=== PATIENT | female | born 1940 | race Two or more races ===

== ENCOUNTER 2018-05-06 16:52 | Emergency (ER) | payer OTHER ==
--- NOTE | 2018-05-06 16:58 | EDPHY ---
General Time Seen by Provider: 05/06/18 16:55 Narrative: CLINICAL IMPRESSION: Right anterior Epistaxis ASSESSMENT/PLAN: Patient is a 77-year-old female with a history of hypertension, atrial fibrillation and recent pacemaker implantation was currently on Eliquis, presents with bleeding from the right nares. Patient is afebrile and nontoxic- appearing, she is in no acute distress on arrival. Physical examination revealed oozing along the anterior septum in the right nares. There was no obvious hematoma, perforation, foreign body, mass or evidence of a posterior epistaxis. The patient was given Afrin, silver nitrate was applied to the septum as discussed in the procedure note with hemostasis achieved. The patient was observed for a period of time with no recurrent bleeding or evidence of posterior epistaxis. History and physical examination is consistent with anterior right-sided epistaxis. On repeat examination and prior to discharge the patient is well appearing, there is no active bleeding and no blood noted in the posterior pharynx. The patient was noted to have elevated blood pressure readings in the emergency department, she has not taken her antihypertensives today and understands the importance of doing so when she gets home. She is visiting from [place], she is well established with her PCP and will call to schedule follow-up. Strict return precautions were discussed- patient will return for recurrent bleeding, dizziness, headache, chest pain, shortness of breath or for any other concerning symptom. The patient and family members all verbalized understanding and they were in agreement with this plan. DIFFERENTIAL DX: Differential diagnosis including but not limited to and in no certain order anterior epistaxis, posterior epistaxis, septal hematoma, septal perforation, foreign body, mass, trauma ED PROCEDURES: Procedure: Epistaxis control. After verbal consent was obtained, the patient was pretreated with Afrin, silver nitrate was applied to the anterior septum of the right nares. The anterior epistaxis was identified. Following the procedure the patient was re- examined and the bleeding was well controlled. The patient tolerated the procedure well. The procedure was performed by myself. ED COURSE: 1725: Case discussed with Dr. Jaquez. 1750: Patient coughed up quarter-sized blood clot, very scant amount of blood noted in the posterior pharynx. On repeat examination the right nares has no additional bleeding, hemostasis has been achieved. CHIEF COMPLAINT: Epistaxis HPI: Patient is a 77-year-old female with a history of high blood pressure, atrial fibrillation and recent pacemaker implantation on Eliquis who presents to the emergency department with complaints of a right-sided nose bleed. Patient reports approximately an hour prior to arrival she was doing dishes at the sink when she had a sudden onset nose bleed from the right side. She was unable to get the bleeding under control, she reports bleeding from her right nares and clots coming out of her mouth. Patient denies any trauma, she has had no headache, dizziness, chest pain or shortness of breath. She denies any other physical complaint in the emergency department. Patient subsequently called 911 as she was unable to get the bleeding under control, bleeding has since stopped since she arrived in the emergency department. PMH: Atrial fibrillation, hypertension, pacemaker Pertinent Past Surgical History: Pacemaker Family History: Noncontributory Social History: Denies illicit drug use, cigarette smoking or alcohol REVIEW OF SYSTEMS: All other systems negative Constitutional: No fever, no chills, appetite change. Eyes: No discharge, vision change ENT: Epistaxis. No sore throat, congestion, ear pain. Cardiovascular: No chest pain, no palpitations. Respiratory: No cough, no shortness of breath. Gastrointestinal: No abdominal pain, no vomiting, diarrhea. Genitourinary: No hematuria, dysuria, flank pain, pelvic pain. Musculoskeletal: No back pain, joint swelling, joint pain, myalgias. Skin: No rashes, color change. Neurological: No headache, dizziness, weakness. PHYSICAL EXAM: General Appearance: Well-appearing, no acute distress. HENT: Normocephalic, atraumatic. Bilateral external ears are normal. Bilateral tympanic membranes are normal with pearly sanchez reflex. Left nares are clear, mucosa is pink. Right nares with oozing along the anterior septum. There is no evidence of septal hematoma, perforation, mass or foreign body. Oropharynx is clear, uvula is midline. There is no tonsillar enlargement or exudate. Scant blood noted in the posterior pharynx. The dentition is normal. Eyes: PERRLA, no acute vision change, nystagmus, swelling, discharge, pain or photosensitivity. Conjunctiva pink, no pallor or injection. Neck: Supple, nontender, no lymphadenopathy, no midline pain, FROM, no meningismus. Respiratory: There are no retractions, lungs are clear to auscultation. Cardiac: Regular rate and rhythm, no murmurs or gallops. Gastrointestinal: Abdomen is soft, nontender, bowel sounds normal, no masses/ hernia, no rigidity, guarding or focal peritoneal findings. Neurological: Alert and oriented x 3, CN 2-12 grossly intact, normal gait no ataxia, DTR's intact, normal sensation and strength Skin: Warm, dry, no rashes, no nodules on palpation. Musculoskeletal: Extremities are symmetrical, full range of motion, no tenderness, deformity, swelling, or erythema. Psychiatric: Patient is oriented X 3, there is no agitation. MEDICAL DECISION MAKING: Patient was seen independently. Secondary supervising physician at time of evaluation was Dr. Jaquez, he did not personally evaluate this patient. Diagnosis: Right anterior Epistaxis. New, requires workup Summary: See Assessment and Plan for summary of ED visit Clinical lab tests: Not applicable. Independent visualization of images, tracing, or specimens: Not applicable. Decision to obtain medical records or history from someone other than the patient: Yes, granddaughter Review / Summarize previous medical records: Yes Discussed patient with another provider: Yes Patient Progress: Stable, discharge. - History Smoking Status: Never smoked - Objective Vital Signs: Initial Vital Signs Temperature (C) 36.6 C 05/06/18 17:02 Heart Rate 86 05/06/18 17:02 Respiratory Rate 18 05/06/18 17:02 Blood Pressure 164/110 H 05/06/18 17:02 O2 Sat (%) 96 05/06/18 17:02 O2 Delivery Mode Room Air Allergies/Adverse Reactions: No Known Allergies Allergy (Unverified 10/26/17 11:34) Home Medications: Medication Instructions Recorded Digoxin 10/26/17 Enalapril Maleate 10/26/17 Propranolol HCl 10/26/17 Xarelto 10/26/17 Medications Given: Discontinued Medications Oxymetazoline HCl (Afrin Nasal [place]) 2 sprays EACHNARE EDNOW ONE Stop: 05/06/18 17:06 Last Admin: 05/06/18 17:14 Dose: 2 spr Silver Nitrate/Potassium Nitrate (Silver Nitrate Applicator) 2 each TP EDNOW ONE Stop: 05/06/18 17:06 Last Admin: 05/06/18 17:14 Dose: 2 each Departure - Departure Disposition: Home, Routine, Self-Care Clinical Impression: Epistaxis Condition: Good Instructions: Nosebleed (ED) Additional Instructions: DISCHARGE INSTRUCTIONS FROM YOUR DOCTOR Thank you for visiting our emergency department today. Please keep in mind that discharge from the emergency department does not mean that there is nothing wrong - it simply means that we have not identified an emergency condition that requires further evaluation or treatment in the hospital. You should always plan to follow up with primary care for re-evaluation of your condition in the next 2-3 days. Avoid strenuous activity like heavy lifting, pushing, pulling, carrying, bearing down for the next 24 hours. Avoid nose blowing for 12-24 hours. Once the area is healed, consider using a saline nasal spray daily (ie: [place] or [place]). Do not use Afrin daily. You may use Afrin as directed with the nasal clamp for a recurrent nose bleed. Consider running a cool mist humidifier in your home. As discussed if the nose re-bleeds, apply pressure for timed 20 minutes and sit upright. Drink a glass of cold water. Your blood pressure was elevated/uncontrolled during your stay in the ED today. Check your blood pressure once to twice daily. Continue taking your blood pressure medication a prescribed by your PCP. Schedule a follow-up visit in the next 1-3 days for a blood pressure follow-up appointment as your medication may need to be adjusted. Blood pressure that remains high is harmful. Schedule a follow-up appointment with your primary care provider tomorrow. Return for recurrent bleeding, development of fever, severe headache, dizziness or lightheadedness, fainting, chest pain, shortness of breath, severe headache, discolored drainage from the nose, other signs of bleeding like blood in the urine, unusual bruising, blood in the stool, vomiting blood, facial pain, difficulty breathing or swallowing, numbness, tingling, weakness, or for any other new, worrisome or worsening symptoms. People present with illnesses and injuries in different ways, and it is always possible that we have missed something. You may always return for re-evaluation if symptoms worsen or if they are not improving or if you develop new/different symptoms. Again, thank you for choosing our emergency department. We hope that you feel better. INSTRUCCIONES DE CALDWELL MDICO PARA DARLE DE GABRIEL Brandy por visitar nuestro Departamento de emergencia hoyariel. Tenga en cuenta que darle de gabriel del departamente de emergencias no significa que no hay nada aurelia - simplemente significa que no hemos identificado jam situacin de emergencia que requiera jam evaluacin adicional o tratamiento en el hospital. Debe siempre kayla seguimiento con caldwell atencin primaria para otra reevaluacin de caldwell condicin en los prximos 2-3 mosley. Evitar actividades extenuantes, maira levantar objetos pesados, empujar, tirar, llevar, tironeo hacia abajo por las prximas 24 horas. Evitar soplar por la nariz emily 12-24 horas. Jam vez que el letty haya sanado, considere usar diariamente un aerosol nasal salino (es decir: mar o [place]). No usar Afrin diariamente. Puedes usar Afrin maira se indica con la pinza nasal para un sangrado de nariz recurrente. Considere usar un humidificador en caldwell casa. Si la nariz sangra nuevamente, aplique presin emily 20 minutos cronometrados y sentarse erguida. Monalisa un vaso de agua fra. Caldwell presin arterial estaba elevada/incontrolada emily caldwell estancia en la sandra de emergencia hoy. Revise caldwell presin arterial jam o dos veces diariamente. Contine tomando caldwell medicamento de la presin arterial prescrita por caldwell PCP. Programar jam visita de seguimiento en los prximos mosley 1-3 para jam werner de control de la presin arterial maira caldwell medicamento puede necesitar ser ajustar. La presin arterial que se mantiene gabriel es perjudicial. Programar jam werner de seguimiento con caldwell mdico de atencin primaria maana. Regrese si tiene sangrado recurrente, desarrolla de fiebre, dolor de rosalva corrie, mareos o vahdos, desmayos, dolor de pecho, falta de respiracin, dolor de rosalva corrie, descolorida drenaje de la nariz, otros signos de hemorragia maira de la peri en la orina, moretones inusuales , de la peri en las heces, vmitos de peri, dolor facial, dificultad para respirar o tragar, entumecimiento, hormigueo, debilidad, o de cualquier otro nuevo, preocupantes o empeoramiento de los sntomas. Todas las personas presentan enfermedades y lesiones de diferentes maneras, y siempre es posible que se nos haya pasado algo. Siempre puede regresar para ajm reevaluacin si los sntomas empeoran o si no estn mejorando o si se desarrollan sntomas nuevos o diferentes. Jam vez ms, brandy por elegir nuestro servicio de emergencias. Esperamos que se sienta mejor. Referrals: Linda Miller MD [place] [place] - As per Instructions ( Please establish care if you do not have a primary care provider.)
[2018-05-06] MEDS ORDERED: OXYMETAZOLINE 30 ML NASAL SPRAY EACHNARE ONE (17:05)
[2018-05-06] MEDS ORDERED: SILVER NITRATE APPLICATOR 1 APPL TP ONE (17:05)
[2018-05-06 18:08] VITALS: BP 150/78
== END 2018-05-06 18:11 | disposition home or self-care (01) ==
LOC: EDUNIT#
PROC: 3E09XTZ Introduction of Destructive Agent into Nose, External Approach (ICD-10-PCS; principal; 2018-05-06)
DX: R04.0 Epistaxis (principal); I10 Essential (primary) hypertension; I48.91 Unspecified atrial fibrillation; Z79.01 Long term (current) use of anticoagulants; Z95.0 Presence of cardiac pacemaker